=== PATIENT | male | born 1995 | race Caucasian/White ===

== ENCOUNTER 2017-04-18 11:31 | Emergency (ER) | payer BC ==
[~2017-04-18] VITALS: Ht 182.9 cm; Wt 83.9 kg
[2017-04-18 11:43] VITALS: BP_SYST 149
[2017-04-18 14:23] VITALS: BP_SYST 142
== END 2017-04-18 14:12 | disposition home or self-care (01) ==
LOC: SED 11:31
DX: S86.012A Strain of left Achilles tendon, initial encounter (principal); X58.XXXA Exposure to other specified factors, initial encounter; Y93.67 Activity, basketball; Y92.320 Baseball field as the place of occurrence of the external cause; Y99.8 Other external cause status
CPT/HCPCS: 99284